=== PATIENT | female | born 2000 | race Two or more races ===

== ENCOUNTER 2019-10-18 17:34 | Emergency (ER) | payer SELFPAY ==
[~2019-10-18] VITALS: Ht 157.5 cm; Wt 65.0 kg
[2019-10-18 17:37] VITALS: BP 125/64
[2019-10-18] MEDS ORDERED: ONDANSETRON ODT 4 MG ONE (18:07)
[2019-10-18 18:13] LABS: BASOPHILS # (AUTO) 0.06 x10^3/uL (0-0.1); BASOPHILS % (AUTO) 1 % (0-1); EOSINOPHILS # (AUTO) 0.03 x10^3/uL (0-0.4); EOSINOPHILS % (AUTO) 0 % (1-7); LYMPHOCYTES # (AUTO) 2.29 x10^3/uL (1-3.4); LYMPHOCYTES % (AUTO) 17 % (22-44); MD NO; MEAN CORPUSCULAR HEMOGLOBIN 33.7 pg (27.0-34.8); MEAN CORPUSCULAR HGB CONC 34.1 g/dL (32.4-35.8); MEAN CORPUSCULAR VOLUME 98.7 fL (80-100); MEAN PLATELET VOLUME 8.7 fL (7.4-10.4); MONOCYTES % (AUTO) 5 % (2-9); NEUTROPHILS % (AUTO) 77 % (42-75); PLATELET COUNT 251 x10^3/uL (130-400); RED BLOOD COUNT 4.22 x10^6/uL (3.82-5.3); RED CELL DISTRIBUTION WIDTH 13.2 % (9.6-15.2)
--- NOTE | 2019-10-18 18:23 | NUR ---
BS US IN PROGRESS
[2019-10-18 18:27] LABS: ALANINE AMINOTRANSFERASE 30 U/L (12-78); ALBUMIN 3.4 g/dL (3.4-5.0); ANION GAP 8 mmol/L (5-15); CALCIUM 8.7 mg/dL (8.5-10.1); CHLORIDE 104 mmol/L (98-107); CREATININE 0.54 mg/dL (0.55-1.02)
[2019-10-18 18:44] LABS: ALKALINE PHOSPHATASE 57 U/L (45-117); BILIRUBIN,TOTAL 0.4 mg/dL (0.2-1.0); TOTAL PROTEIN 7.1 g/dL (6.4-8.2)
[2019-10-18] MEDS ORDERED: ONDANSETRON ODT 4 MG PO ONE (19:00)
[2019-10-18 19:13] LABS: MICROSCOPIC INDICATED
[2019-10-18 19:20] LABS: CULTURE INDICATED? NO
--- NOTE | 2019-10-18 19:21 | NUR ---
REPORT RECIEVED FROM RANI RIVERA, ASSUMING CARE OF PT. LABS DRAWN, UA SENT BY PRIOR RN. US COMPLETED. AWAITING RESULTS AT THIS TIME
--- NOTE | 2019-10-18 19:32 | NUR ---
ALL RESULTS BACK AT THIS TIME, CHART UP FOR RECHECK
--- NOTE | 2019-10-18 19:56 | NUR ---
PO CHALLENGE COMPLETED SUCCESSFULLY. PT READY FOR DC
== END 2019-10-18 19:58 | disposition home or self-care (01) ==
LOC: ED 18:41
DX: O26.891 Other specified pregnancy related conditions, first trimester (principal); R05 Cough; Z3A.00 Weeks of gestation of pregnancy not specified
CPT/HCPCS: 36415; 71045; 76801; 80053; 81001; 84702; 85025; 99284; Q0162